=== PATIENT | male | born 1980 | race Caucasian/White ===

== ENCOUNTER 2017-11-05 14:05 | Emergency (ER) | payer BC ==
[2017-11-05] MEDS ORDERED: Ketorolac 30 MG/ML SDV IVPUSH ONE (14:30)
[2017-11-05] MEDS ORDERED: Sodium Chloride 0.9% 10 ML Syringe FLUSH PRN (14:30)
[2017-11-05] MEDS: Sodium Chloride 0.9% 1,000 ML IV SCH ×2 (14:30→15:39)
[2017-11-05] MEDS ORDERED: Ondansetron 4 MG/2 ML SDV IVPUSH ONE (14:31)
--- NOTE | 2017-11-05 14:37 | EDM.PDOC ---
ED HPI GENERAL MEDICAL PROBLEM - General Chief Complaint: Back Pain or Injury Stated Complaint: BACK AND STOMACH PAIN Time Seen by Provider: 11/05/17 14:15 Source of Information: Reports: Patient History Limitations: Reports: No Limitations - History of Present Illness INITIAL COMMENTS - FREE TEXT/NARRATIVE: Damian comes into [facility] ED with acute onset of R flank and lower back pain beginning a few hours ago. Sxs are nonradiating, constant, and not positional. He initially thought sxs were related to a flare of mechanical low back pain, but relaxant med was of no benefit. Sxs escalated to include nausea while at work, and he was given the rest of the day off. Vomiting ensued at home with more pain necessitating medical evaluation. His general health is good, no hx of hematuria or stone disease. Right Lower Back Pain Score (Numeric/FACES): 9 - Related Data Allergies Allergy/AdvReac Type Severity Reaction Status Date / Time No Known Allergies Allergy Verified 09/05/15 18:03 Home Meds: Home Meds Multivitamin [Multivitamins] 1 cap PO DAILY 08/07/13 [History] valACYclovir HCl [Valtrex] 500 mg PO ASDIRECTED 12/14/15 [History] Past Medical History - Past Health History Medical/Surgical History: Denies Medical/Surgical History Musculoskeletal History: Reports: Back Pain, Chronic Social & Family History - Tobacco Use Smoking Status *Q: Current Every Day Smoker Years of Tobacco use: 18 Packs/Tins Daily: 1 - Recreational Drug Use Recreational Drug Use: No ED ROS GENERAL - Review of Systems Review Of Systems: See Below Constitutional: Reports: Malaise, Weakness, Decreased Appetite HEENT: Reports: No Symptoms Respiratory: Reports: No Symptoms Cardiovascular: Reports: No Symptoms Endocrine: Reports: No Symptoms GI/Abdominal: Reports: Decreased Appetite, Nausea, Vomiting : Reports: Flank Pain (Right) Musculoskeletal: Reports: Back Pain (R lower back) Skin: Reports: No Symptoms Neurological: Reports: No Symptoms Psychiatric: Reports: No Symptoms Hematologic/Lymphatic: Reports: No Symptoms Immunologic: Reports: No Symptoms ED EXAM,LOWER BACK PAIN/INJURY - Physical Exam Exam: See Below Exam Limited By: No Limitations General Appearance: Alert, WD/WN, Moderate Distress, Thin Eye Exam: Bilateral Eye: EOMI, Normal Inspection, PERRL Ears: Normal External Exam Nose: Normal Inspection Throat/Mouth: Normal Inspection, Normal Oropharynx Head: Normocephalic Neck: Normal Inspection, Supple Respiratory/Chest: Lungs Clear, Normal Breath Sounds, Chest Non-Tender Cardiovascular: Regular Rate, Rhythm, No Murmur GI/Abdominal: Normal Bowel Sounds, No Organomegaly, No Distention, No Mass, Guarding, Tender (RUQ and RLQ with guarding) (Male) Exam: No Hernia Rectal (Males) Exam: Deferred Back Exam: Normal Inspection, Paraspinal Tenderness (limited RCVA and R lower back) Extremities: Normal Inspection Neurological: Alert, Normal Mood/Affect, Normal Dorsiflexion, CN II-XII Intact, Normal Plantar Flexion, No Motor/Sensory Deficits, Oriented x 3 Psychiatric: Normal Affect, Anxious Skin Exam: Warm, Dry, Intact Lymphatic: No Adenopathy Course - Vital Signs Text/Narrative:: Following assessment at the [facility] ED, an IV was started in the RUE, and Damian was administered NS 2L, Toradol 30mg, and Zofran 4 mg IV. There was improvement in sxs within 30 minutes. Subsequent lab studies including CBC, BMP were baseline, UA noted lg blood and RBCs. A subsequent Abd-Pelvic CT wo contrast noted: 3 mm opague stone at the R UVJ. Last Recorded V/S: Last Vital Signs Temp 36.7 C 11/05/17 16:01 Pulse 70 11/05/17 16:01 Resp 18 11/05/17 16:01 BP 110/56 L 11/05/17 16:01 Pulse Ox 100 11/05/17 16:01 - Orders/Labs/Meds Orders: Active Orders 24 hr Category Date Time Status Abdomen Pelvis wo Cont [CT] Stat Exams 11/05/17 16:19 Ordered DRUG SCREEN, URINE ALERE [URCHEM] Stat Lab 11/05/17 15:57 Ordered UA W/MICROSCOPIC [URIN] Stat Lab 11/05/17 15:57 Ordered Sodium Chloride 0.9% [Normal Saline] 1,000 ml Med 11/05/17 14:45 Active IV ASDIRECTED Sodium Chloride 0.9% [Saline Flush] Med 11/05/17 14:30 Active 10 ml FLUSH ASDIRECTED PRN Tamsulosin [Flomax] Med 11/05/17 17:02 Once 0.4 mg PO ONETIME ONE Peripheral IV Insertion Adult [OM.PC] Routine Oth 11/05/17 14:30 Ordered Medication Orders Sodium Chloride (Normal Saline) 1,000 mls @ 999 mls/hr IV ASDIRECTED PO Last Admin: 11/05/17 15:39 Dose: 999 mls/hr Infusion: 11/05/17 15:31 Dose: 999 mls/hr Admin: 11/05/17 14:30 Dose: 999 mls/hr Sodium Chloride (Saline Flush) 10 ml FLUSH ASDIRECTED PRN PRN Reason: Keep Vein Open Labs: Laboratory Tests 11/05/17 11/05/17 11/05/17 Range/Units 14:45 14:45 15:57 WBC 7.5 (4.5-12.0) X10-3/uL RBC 5.11 (4.30-5.75) x10(6)uL Hgb 15.7 H (11.5-15.5) g/dL Hct 46.0 (30.0-51.3) % MCV 89.9 (80-96) fL MCH 30.7 (27.7-33.6) pg MCHC 34.1 (32.2-35.4) g/dL RDW 13.2 (11.5-15.5) % Plt Count 231 (125-369) X10(3)uL MPV 8.2 (7.4-10.4) fL Neut % (Auto) 65.4 (46-82) % Lymph % (Auto) 24.6 (13-37) % [place] % (Auto) 6.1 (4-12) % Eos % (Auto) 1 (1.0-5.0) % Baso % (Auto) 3 H (0-2) % Neut # (Auto) 4.9 (1.6-8.3) # Lymph # (Auto) 1.9 (0.6-5.0) # [place] # (Auto) 0.5 (0.0-1.3) # Eos # (Auto) 0.0 (0.0-0.8) # Baso # (Auto) 0.2 (0.0-0.2) # Sodium 140 (135-145) mmol/L Potassium 4.2 (3.5-5.3) mmol/L Chloride 103 (100-110) mmol/L Carbon Dioxide 28 (21-32) mmol/L BUN 17 (7-18) mg/dL Creatinine 1.0 (0.70-1.30) mg/dL Est Cr Clr Drug Dosing TNP Estimated GFR (MDRD) > 60 (>60) BUN/Creatinine Ratio 17.0 (9-20) Glucose 111 (80-116) mg/dL Calcium 9.1 (8.6-10.2) mg/dL Urine Color Yellow (YELLOW) Urine Appearance Clear (CLEAR) Urine pH 6.0 (5.0-6.5) Ur Specific [place] 1.020 (1.010-1.025) Urine Protein Negative (NEGATIVE) mg/dL Urine Glucose (UA) Normal (NEGATIVE) mg/dL Urine Ketones 15 H (NEGATIVE) mg/dL Urine Occult Blood Large H (NEGATIVE) Urine Nitrite Negative (NEGATIVE) Urine Bilirubin Negative (NEGATIVE) Urine Urobilinogen Normal (NEGATIVE) mg/dL Ur Leukocyte Esterase Negative (NEGATIVE) Urine RBC Packed H (0) Ur Squamous Epith Cells Moderate H (NS,R,O) Urine Opiates Screen (NEGATIVE) Ur Oxycodone Screen (NEGATIVE) Ur Propoxyphene Screen (NEGATIVE) Ur Barbituates Screen (NEGATIVE) Ur Tricyclics Screen (NEGATIVE) Ur Phencyclidine Scrn (NEGATIVE) Ur Amphetamine Screen (NEGATIVE) Urine MDMA Screen (NEGATIVE) U Benzodiazepines Scrn (NEGATIVE) U Cocaine Metab Screen (NEGATIVE) U Marijuana (THC) Screen (NEGATIVE) 11/05/17 Range/Units 15:57 WBC (4.5-12.0) X10-3/uL RBC (4.30-5.75) x10(6)uL Hgb (11.5-15.5) g/dL Hct (30.0-51.3) % MCV (80-96) fL MCH (27.7-33.6) pg MCHC (32.2-35.4) g/dL RDW (11.5-15.5) % Plt Count (125-369) X10(3)uL MPV (7.4-10.4) fL Neut % (Auto) (46-82) % Lymph % (Auto) (13-37) % [place] % (Auto) (4-12) % Eos % (Auto) (1.0-5.0) % Baso % (Auto) (0-2) % Neut # (Auto) (1.6-8.3) # Lymph # (Auto) (0.6-5.0) # [place] # (Auto) (0.0-1.3) # Eos # (Auto) (0.0-0.8) # Baso # (Auto) (0.0-0.2) # Sodium (135-145) mmol/L Potassium (3.5-5.3) mmol/L Chloride (100-110) mmol/L Carbon Dioxide (21-32) mmol/L BUN (7-18) mg/dL Creatinine (0.70-1.30) mg/dL Est Cr Clr Drug Dosing Estimated GFR (MDRD) (>60) BUN/Creatinine Ratio (9-20) Glucose (80-116) mg/dL Calcium (8.6-10.2) mg/dL Urine Color (YELLOW) Urine Appearance (CLEAR) Urine pH (5.0-6.5) Ur Specific [place] (1.010-1.025) Urine Protein (NEGATIVE) mg/dL Urine Glucose (UA) (NEGATIVE) mg/dL Urine Ketones (NEGATIVE) mg/dL Urine Occult Blood (NEGATIVE) Urine Nitrite (NEGATIVE) Urine Bilirubin (NEGATIVE) Urine Urobilinogen (NEGATIVE) mg/dL Ur Leukocyte Esterase (NEGATIVE) Urine RBC (0) Ur Squamous Epith Cells (NS,R,O) Urine Opiates Screen Negative (NEGATIVE) Ur Oxycodone Screen Negative (NEGATIVE) Ur Propoxyphene Screen Negative (NEGATIVE) Ur Barbituates Screen Negative (NEGATIVE) Ur Tricyclics Screen Negative (NEGATIVE) Ur Phencyclidine Scrn Negative (NEGATIVE) Ur Amphetamine Screen Negative (NEGATIVE) Urine MDMA Screen Negative (NEGATIVE) U Benzodiazepines Scrn Negative (NEGATIVE) U Cocaine Metab Screen Negative (NEGATIVE) U Marijuana (THC) Screen Negative (NEGATIVE) Meds: Medications Generic Name Dose Route Start Last Admin Trade Name Freq PRN Reason Stop Dose Admin Sodium Chloride 1,000 mls @ 999 mls/hr 11/05/17 14:45 11/05/17 15:39 Normal Saline IV 999 mls/hr ASDIRECTED PO Administration Sodium Chloride 10 ml 11/05/17 14:30 Saline Flush FLUSH ASDIRECTED PRN Keep Vein Open Discontinued Medications Generic Name Dose Route Start Last Admin Trade Name Freq PRN Reason Stop Dose Admin Ketorolac Tromethamine 30 mg 11/05/17 14:30 11/05/17 14:37 Toradol IVPUSH 11/05/17 14:31 30 mg ONETIME ONE Administration Ondansetron HCl 4 mg 11/05/17 14:31 11/05/17 14:39 Zofran IVPUSH 11/05/17 14:32 4 mg ONETIME ONE Administration Departure - Departure Time of Disposition: 17:05 Disposition: Home, Self-Care 01 Clinical Impression: Ureterolithiasis - Discharge Information Referrals: PCP,None [Primary Care Provider] - Forms: ED Department Discharge - Problem List & Annotations (1) Ureterolithiasis SNOMED Code(s): 73892021 Code(s): N20.1 - CALCULUS OF URETER Status: Acute Current Visit: Yes Annotation/Comment:: I administered Flomax 0.4mg po before discharge. I advised hydration, stain all urine, and NSAIDs for pain. - Problem List Review Problem List Initiated/Reviewed/Updated: Yes - My Orders Last 24 Hours: My Active Orders 11/05/17 14:30 Sodium Chloride 0.9% [Saline Flush] 10 ml FLUSH ASDIRECTED PRN Peripheral IV Insertion Adult [OM.PC] Routine 11/05/17 14:45 Sodium Chloride 0.9% [Normal Saline] 1,000 ml IV ASDIRECTED 11/05/17 15:57 DRUG SCREEN, URINE ALERE [URCHEM] Stat UA W/MICROSCOPIC [URIN] Stat 11/05/17 16:19 Abdomen Pelvis wo Cont [CT] Stat 11/05/17 17:02 Tamsulosin [Flomax] 0.4 mg PO ONETIME ONE - Assessment/Plan Last 24 Hours: My Active Orders 11/05/17 14:30 Sodium Chloride 0.9% [Saline Flush] 10 ml FLUSH ASDIRECTED PRN Peripheral IV Insertion Adult [OM.PC] Routine 11/05/17 14:45 Sodium Chloride 0.9% [Normal Saline] 1,000 ml IV ASDIRECTED 11/05/17 15:57 DRUG SCREEN, URINE ALERE [URCHEM] Stat UA W/MICROSCOPIC [URIN] Stat 11/05/17 16:19 Abdomen Pelvis wo Cont [CT] Stat 11/05/17 17:02 Tamsulosin [Flomax] 0.4 mg PO ONETIME ONE Plan: Follow up with PCP.
[2017-11-05] MEDS ORDERED: Tamsulosin 0.4 MG Cap.ER PO ONE (17:02)
[2017-11-05 17:15] VITALS: BP 110/67
== END 2017-11-05 17:15 | disposition home or self-care (01) ==
LOC: FB.ED 14:05
DX: N20.1 Calculus of ureter (principal); F17.210 Nicotine dependence, cigarettes, uncomplicated
CPT/HCPCS: 36415; 74176; 80048; 80305; 81001; 85025; 96361; 96374; 96375; 99284; A9270-GY; J1885; J2405; J7040

== ENCOUNTER 2024-08-08 06:08 | Day surgery (SDC) | payer OTHER ==
[2024-08-08] MEDS ORDERED: Propofol 200 MG/20 ML SDV IV ONE (06:09)
[2024-08-08] MEDS ORDERED: Lidocaine 2% 100 MG/5 ML Syringe IVPUSH ONE (06:09)
[2024-08-08] MEDS ORDERED: Ketorolac 30 MG/ML SDV IVPUSH ONE (06:09)
[2024-08-08] MEDS ORDERED: Dexamethasone 4 MG/ML SDV IV ONE (06:09)
[2024-08-08] MEDS ORDERED: fentaNYL 100 MCG/2 ML SDV IV ONE (06:09)
[2024-08-08] MEDS ORDERED: Midazolam 1 MG/ML 2 ML SDV IV ONE (06:09)
[2024-08-08] MEDS ORDERED: Ondansetron 4 MG/2 ML SDV IVPUSH ONE (06:09)
[2024-08-08] MEDS ORDERED: Sodium Chloride 0.9% 10 ML Syringe FLUSH PRN (06:15)
[2024-08-08] MEDS: Lactated Ringers 1,000 ML IV SCH (07:29)
[2024-08-08] MEDS: ceFAZolin 1 GM Vial IVPUSH ONE (07:30)
[2024-08-08 07:41] VITALS: BP 117/73; PULSE 72
[2024-08-08] MEDS: Lidocaine 1% with EPINEPHrine 1:100,000 20 ML MDV INJECT ONE (07:56)
[2024-08-08] MEDS: Bupivacaine 0.5% 30 ML SDV INJECT ONE (07:56)
== END 2024-08-09 10:05 | disposition home or self-care (01) ==
LOC: FB.SDS 06:08
PROVIDERS: ATTEND Surgery
DX: K42.0 Umbilical hernia with obstruction, without gangrene (principal); F17.210 Nicotine dependence, cigarettes, uncomplicated
CPT/HCPCS: 00840; 88302; J0665; J0690; J1100; J1885; J2250; J2405; J2704; J3010; J7120

== ENCOUNTER 2024-12-23 19:12 | Emergency (ER) | payer OTHER ==
[2024-12-23] MEDS ORDERED: Acetaminophen/HYDROcodone 325-5 MG Tab PO ONE (19:13)
[2024-12-23 20:02] LABS: BILIRUBIN,URINE NEGATIVE (NEGATIVE); GLUCOSE,URINE NORMAL (NORMAL); KETONES,URINE NEGATIVE (NEGATIVE); LEUKOCYTE ESTERASE,URINE NEGATIVE (NEGATIVE); NITRITE,URINE NEGATIVE (NEGATIVE); OCCULT BLOOD,URINE LARGE (NEGATIVE); PROTEIN,URINE NEGATIVE (NEGATIVE); UROBILINOGEN,URINE NORMAL (NEGATIVE)
[2024-12-23 20:03] LABS: APPEARANCE,URINE CLEAR (CLEAR); COLOR,URINE YELLOW (YELLOW); SQUAMOUS EPITHELIAL CELLS,UR OCCASIONAL (NS,R,O); WBC,URINE 0-5 (0-5)
[2024-12-23 20:04] LABS: BACTERIA,URINE OCCASIONAL (NS)
[2024-12-23 21:13] VITALS: BP 112/80; PULSE 81
== END 2024-12-23 21:09 | disposition home or self-care (01) ==
LOC: FB.ED 19:12
DX: N13.2 Hydronephrosis with renal and ureteral calculous obstruction (principal); M54.50 Low back pain, unspecified; I25.10 Atherosclerotic heart disease of native coronary artery without angina pectoris; Z79.899 Other long term (current) drug therapy
CPT/HCPCS: 74176; 81001; 99284; A9270